=== PATIENT | female | born 1945 | race Asian ===

== ENCOUNTER → 2024-07-11 | Outpatient (CLI) | payer OTHER, SELFPAY ==
[2024-07-11 10:49] LABS: Albumin, Serum 4.4 gm/dL (3.4-4.8); Anion Gap 5 (7-16); BUN/Creatinine Ratio 16 Ratio (12-20); Blood Urea Nitrogen 14 mg/dL (9-23); Calcium 10.6 mg/dL (8.3-10.6); Calcium (Corrected) 10.6 mg/dL (8.5-10.1); Carbon Dioxide 28.9 mMol/L (20.0-31.0); Chloride 108 mMol/L (98-107); Creatinine (Component) 0.9 mg/dL (0.6-1.3); Glucose 96 mg/dL (74-106); Osmolality,Calculated 283 (275-295); Phosphorous 3.8 mg/dL (2.4-5.1); Potassium 4.5 mMol/L (3.4-5.1); Sodium 142 mMol/L (136-145); eGFR > 60 See Note
[2024-07-11 10:50] LABS: Parathyroid Hormone Intact 107.6 pg/ml (18.5-88.0)
== END | disposition home or self-care (01) ==
LOC: COPL 09:22
PROVIDERS: PCP Internal Medicine; Referring Provider Internal Medicine; Visit Provider Internal Medicine
DX: I10 Essential (primary) hypertension (principal); E21.0 Primary hyperparathyroidism
CPT/HCPCS: 36415; 80069; 83970

== ENCOUNTER 2024-10-23 22:31 | Emergency (ER) | payer OTHER, SELFPAY ==
[2024-10-23 22:33] VITALS: BMI 25.9
[2024-10-23 22:44] VITALS: BP 99/62; PULSE 75; RESP 20; TEMP 36.6
--- NOTE | 2024-10-23 23:04 | EKG_ITS ---
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
[2024-10-23 23:05] VITALS: BP 90/60; BP 92/56; BP 95/60; PULSE 66; PULSE 76; PULSE 77
--- NOTE | 2024-10-23 23:05 | PD.EDRME ---
Rapid Medical Screening Exam RME Arrival date/time: 10/23/24 22:31 79-year-old female past medical history of hypertension presents emergency department complaining of shakiness and low blood pressure after taking 50 mg of hydralazine when she normally just takes 25mg along with her atenolol. Chief Complaint: General Adult/Misc Complain Time Seen by Provider: 10/23/24 22:38 Vital signs: Vital Signs Temperature 97.9 F 10/23/24 22:44 Pulse Rate 75 10/23/24 22:44 Respiratory Rate 20 10/23/24 22:44 Blood Pressure 99/62 10/23/24 22:44 Oxygen Delivery Method Room Air 10/23/24 22:44 Vital signs reviewed by provider: Yes
[2024-10-23 23:35] LABS: Basophils # (Auto) 0.1 Thou/mm3 (0.0-0.2); Basophils % (Auto) 2 % (0-2.5); Eosinophils # (Auto) 0.2 Thou/mm3 (0.0-0.5); Eosinophils % (Auto) 3 % (0-10); Hematocrit 41.2 % (36.0-46.0); Hemoglobin 13.4 g/dL (12.0-16.0); Immature Granulocytes % (Auto) 0 % (0-0); Immature Granulocytes Auto 0.02 Thou/mm3 (0.00-0.00); Lymphocytes # (Auto) 2.8 Thou/mm3 (1.0-4.8); Lymphocytes % (Auto) 38 % (10-50); Mean Corpuscular HGB Conc 32.5 g/dl (31.0-37.0); Mean Corpuscular Hemoglobin 31.5 pg (25.0-35.0); Mean Corpuscular Volume 97 fL (80-100); Monocytes # (Auto) 0.6 Thou/mm3 (0.0-0.8); Monocytes % (Auto) 9 % (0-12); Neutrophils # (Auto) 3.6 Thou/mm3 (1.8-7.7); Neutrophils % (Auto) 49 % (37-80); Nucleated Red Blood Cell % 0 /100 WBC (0); Platelet Count 243 Thou/mm3 (140-440); RDW Standard Deviation 44.5 fL (36.4-46.3); Red Blood Count 4.26 Miln/mm3 (4.00-5.20); White Blood Count 7.3 Thou/mm3 (3.6-11.0)
[2024-10-23 23:45] VITALS: BP 108/61; PULSE 68; RESP 18; O2SAT 98
[2024-10-23 23:46] LABS: Collection Type, Urine Clean Catch
[2024-10-23 23:50] LABS: Partial Thromboplastin Time 29.1 Seconds (22.0-36.0); Prothrombin Time 10.9 Seconds (9.0-12.2)
[2024-10-23 23:52] LABS: Bacteria,Urine Rare; Bilirubin,Urine Negative (Negative); Blood,Urine Negative (Negative); Clarity,Urine Clear (Clear/Hazy); Color,Urine Lt-Yellow (Lt Yel-Yel); Glucose, Urine Negative (Negative); Ketones,Urine Negative (Negative); Leukocyte Esterase,Urine Positive (Negative); Nitrite,Urine Negative (Negative); Protein,Urine Negative (Neg - Trace); RBC,Urine 6 /hpf (0-3); Specific Gravity,Urine 1.009 (1.001-1.035); Squamous Epithelial Cell,Urine 3 /hpf (0-5); Urobilinogen,Urine Negative mg/dL (0.0-1.0); WBC,Urine 17 /hpf (0-5)
[2024-10-23 23:52] LABS: B-Type Natriuretic Peptide 106 pg/mL (0-100)
[2024-10-24] VITALS (8 sets, daily range): BP systolic 92–115; BP diastolic 58–86; PULSE 58–76; RESP 18; TEMP 36.5; O2SAT 96–99
[2024-10-24 00:01] LABS: Albumin, Serum 4.3 gm/dL (3.4-4.8); Albumin/Globulin Ratio 1.6 (1.2-2.2); Alkaline Phosphatase 53 U/L (46-116); Anion Gap 7 (7-16); Aspartate Amino Transferase 18 U/L (0-34); BUN/Creatinine Ratio 15 Ratio (12-20); Bilirubin,Total 0.6 mg/dL (0.3-1.2); Blood Urea Nitrogen 12 mg/dL (9-23); Calcium 10.1 mg/dL (8.3-10.6); Calcium (Corrected) 10.1 mg/dL (8.5-10.1); Carbon Dioxide 24.9 mMol/L (20.0-31.0); Chloride 109 mMol/L (98-107); Creatinine (Component) 0.8 mg/dL (0.6-1.3); Estimated Creatinine Clearance 47.4 mL/min (>60); Globulin 2.7 gm/dL (2.3-3.5); Glucose 97 mg/dL (74-106); Magnesium 2.1 mg/dL (1.6-2.6); Osmolality,Calculated 280 (275-295); Potassium 3.9 mMol/L (3.4-5.1); Sodium 141 mMol/L (136-145); Troponin I < 0.020 ng/mL (0.0-0.045); eGFR > 60 See Note
--- NOTE | 2024-10-24 00:01 | PC.NURSE ---
Pt ambulated to RM #1 with c/o high BP, and took her meds Procardia 60 mg and Hydralazine 50 mg. B/P 157/102 at home per pt.
[2024-10-24 00:05] LABS: Alanine Aminotransferase < 7 U/L (10-49)
--- NOTE | 2024-10-24 00:23 | PD.EDADULT ---
ED General RME/HPI General Chief complaint: General Adult/Misc Complain Stated complaint: LOW BP, FEELS SHAKY Time Seen by Provider: 10/23/24 22:38 Arrival date/time: 10/23/24 22:31 RME / HPI RME / HPI narrative: 10/23/24 22:31 79-year-old female past medical history of hypertension presents emergency department complaining of shakiness and low blood pressure after taking 50 mg of hydralazine when she normally just takes 25mg along with her atenolol. Dr. Alejandra?s Main ED Evaluation: 79yo female with a history of HTN, HLD presents to the ED for complaints of low blood pressure and shakiness. Patient states she was checking her blood pressure earlier tonight and it was noted to be high at 157/102. She states she took an additional dose of her regular hydralazine 25mg, along with a dose of her 's nifedipine in order to bring it down. When she rechecked her blood pressure, it was noted to be 107/102 and she was unsure if her blood pressure cuff was working properly, so she came in for evaluation. Patient reports associated shakiness. She denies any chest pain, shortness of breath, abdominal pain, N/V or any other associated symptoms. Electrician Ship is Dr. Frazier. Related Data Home Medications ?Medication ?Instructions ?Recorded ?Confirmed allopurinol 100 mg tablet 1 tab PO QDAY 04/25/22 04/29/22 atenolol 25 mg tablet 1 tab PO QDAY 04/25/22 04/29/22 hydralazine 25 mg tablet 1 tab PO QDAY 04/29/22 04/29/22 Previous Rx's ?Medication ?Instructions ?Recorded diazepam 2 mg tablet 2 mg PO QDAY PRN anxiety #10 tabs 05/26/24 cephalexin 500 mg capsule 500 mg PO BID Urinary tract 10/24/24 infection 7 days #14 caps diazepam 2 mg tablet 2 mg PO BID PRN anxiety #10 tabs 10/24/24 Allergies Allergy/AdvReac Type Severity Reaction Status Date / Time iron Allergy Severe Itching Verified 04/29/22 12:00 krill oil Allergy Rash Verified 04/29/22 12:00 Review of Systems Review of Systems Systems Reviewed: All systems reviewed, normal except as documented Past Medical History Past Medical History NEUROLOGIC: Negative Seizures CARDIAC: Positive Cardiac Disorders, Hypercholesterolemia and Hypertension; Negative Congestive Heart Failure RESPIRATORY: Negative Chronic Obstructive Pulmonary Disease (COPD) GASTROINTESTINAL: Positive Gastrointestinal Disorders and Gall Bladder Disease GENITOURINARY: Negative Renal Disease MUSCULOSKELETAL: Positive Musculoskeletal Disorders (Spinal Stenosis causing back pain) and Arthritis ENDOCRINE: Negative Diabetes Mellitus Type 1 or Diabetes Mellitus Type 2 HEMATOLOGIC: Negative Blood Disorders PSYCHO/SOCIAL: Positive Depression OTHER HISTORY: Negative Blood Transfusions, Anesthesia Reactions or Cancer Surgical History SURGICAL: Positive Joint Replacement (Back pain due to spinal stenosis), Hysterectomy and Section Social History SMOKING STATUS: Never smoker SUBSTANCE USE: does not use ED Exam Narrative Physical exam: GENERAL APPEARANCE: alert and oriented x 4, well-developed, well-nourished, no acute distress VITALS: All vitals were reviewed and the pulse ox is 99% on room air, which is normal according to my interpretation. HEENT: Normocephalic, atraumatic; pupils equal, round, reactive to light; EOMI; mucous membranes pink, moist; oropharynx clear NECK: Supple LUNGS: CTABL; no wheezes, no rales, no rhonchi HEART: Regular rate, regular rhythm; normal S1, S2; no murmurs ABDOMEN: non distended; normal BS; soft, no tenderness, no guarding, no rebound; no masses, no organomegaly, no hernia BACK: no CVA tenderness EXTREMITIES: atraumatic; no edema NEUROLOGIC: awake; alert and oriented x4; cranial nerves II-XII grossly intact; no focal sensory or motor deficits PSYCHIATRIC: appropriate mood and affect SKIN: warm, dry, normal color; no rashes Course Course Course Narrative: The patient was placed in ED observation care at 10/24/24 at 0023 hours. The patient was placed in ED observation care because of pending monitoring of any side effects due to her blood pressure being low. The patients past medical history, social history, and family history were reviewed. Quality Measures none Orders Category Date Time Status Removable Prosthodontist Q4H START 00 Care 10/23/24 23:20 Active EKG (ED ONLY) *Do not use* NOW Care 10/23/24 23:04 Completed Insert IV NOW Care 10/23/24 23:20 Active Orthostatic Vitals X1 Care 10/23/24 23:06 Active EKG (ED Only) Stat Exams 10/23/24 23:04 Draft B-Type Natriuretic Peptide Stat Lab 10/23/24 23:27 Completed CBC Stat Lab 10/23/24 23:27 Completed Comprehensive Metabolic Panel Stat Lab 10/23/24 23:27 Completed Magnesium Stat Lab 10/23/24 23:27 Completed Partial Thromboplastin Time Stat Lab 10/23/24 23:27 Completed Prothrombin Time with INR Stat Lab 10/23/24 23:27 Completed Troponin I Stat Lab 10/23/24 23:27 Completed Urinalysis Stat Lab 10/23/24 23:42 Completed Sodium Chloride 0.9% 1000 ml [Ns] 1,000 ml Med 10/23/24 23:21 Active IV 125 mls/hr Vital Signs Vital signs: Vital Signs Temperature 97.9 F 10/23/24 22:44 Pulse Rate 75 10/23/24 22:44 Respiratory Rate 20 10/23/24 22:44 Blood Pressure 99/62 10/23/24 22:44 Oxygen Delivery Method Room Air 10/23/24 22:44 [facility] Patient data External records reviewed:: [facility] previous records (Per chart review, patient was seen here on 05/26/24 for anxiety reaction.) Clinical information provided by:: patient Social determinants that could affect healthcare access:: none Patient has the following chronic illnesses:: HTN, HLD How is presenting disease/condition affected by chronic disease/condition?: uneffected by Evaluation data The following diagnostics were reviewed and interpreted by me:: lab results and EKG tracing(s) Lab and/or radiology exams considered but not ordered:: none Interpretation Summary: CBC is normal, PT and INR are normal, PTT is normal, CMP is normal, Troponin is normal, BNP is 106, according to my interpretation. EKG done at 2311, aFib, rate of 70, normal axis, no acute ischemia, according to my interpretation. Medications Medications considered but not ordered:: none Medication administrations:: Medication Administration History Sodium Chloride (Ns) 1,000 mls @ 125 mls/hr IV .Q8H ONE Stop: 10/24/24 07:20 Last Admin: 10/24/24 00:45 Dose: 125 mls/hr Documented By: LB see above Consultations Consultation(s) initiated? (list below): No Diagnosis Differential Diagnosis ED Complaint MDM: medication misadventure, intentional overdose, unintentional overdose Most likely diagnosis given after review of the tests above:: see below Admission Indicated Admission indicated?: not indicated Explain why admission is indicated or not indicated:: Admission criteria not met. Patient is stable to be discharged home. Admission Request Was there a request for admission?: No Disposition Plan Disposition Plan: Discharge Discharge Attestation Discharge Attestation: The patient and all family members were given an opportunity to ask questions and understood the discharge instructions. Discharge instructions specifically effects, indications for sooner follow up or return to the emergency department, and the expected course of current diagnosis. Patient condition: Stable Medical Decision Making MDM Narrative MDM Narrative: Scribe Attestation: 10/24/24 - Nelida Duncan am scribing for and in the presence of Dr. Alejandra. 0130: Patient's blood pressure is 92/60 with a heart rate of 68. Patient to continued being monitored. 0213: Patient's blood pressure is 115/56. Patient states she is asymptomatic and feels better. At this time, observation has ended. Differential Diagnosis Differential Diagnosis: medication misadventure, intentional overdose, unintentional overdose Lab Data 10/23/24 23:27 10/23/24 23:27 Labs: Lab Results 10/23/24 10/23/24 Range/Units 23:27 23:42 WBC 7.3 (3.6-11.0) Thou/mm3 RBC 4.26 (4.00-5.20) Miln/mm3 Hgb 13.4 (12.0-16.0) g/dL Hct 41.2 (36.0-46.0) % MCV 97 (80-100) fL MCH 31.5 (25.0-35.0) pg MCHC 32.5 (31.0-37.0) g/dl RDW Std Deviation 44.5 (36.4-46.3) fL Plt Count 243 (140-440) Thou/mm3 Neut % (Auto) 49 (37-80) % Lymph % (Auto) 38 (10-50) % [place] % (Auto) 9 (0-12) % Eos % (Auto) 3 (0-10) % Baso % (Auto) 2 (0-2.5) % Neut # (Auto) 3.6 (1.8-7.7) Thou/mm3 Lymph # (Auto) 2.8 (1.0-4.8) Thou/mm3 [place] # (Auto) 0.6 (0.0-0.8) Thou/mm3 Eos # (Auto) 0.2 (0.0-0.5) Thou/mm3 Baso # (Auto) 0.1 (0.0-0.2) Thou/mm3 Immature Gran # (Auto) 0.02 H (0.00-0.00) Thou/mm3 Absolute Nucleated RBC 0.00 (0.00-0.00) Thou/mm3 Immature Gran % 0 (0-0) % Nucleated RBC % 0 (0) /100 WBC PT 10.9 (9.0-12.2) Seconds INR 1.0 (0.9-1.3) APTT 29.1 (22.0-36.0) Seconds Sodium 141 (136-145) mMol/L Potassium 3.9 (3.4-5.1) mMol/L Chloride 109 H (98-107) mMol/L Carbon Dioxide 24.9 (20.0-31.0) mMol/L Anion Gap 7 (7-16) BUN 12 (9-23) mg/dL Creatinine 0.8 (0.6-1.3) mg/dL Estim Creat Clear Calc 47.4 L (>60) mL/min eGFR > 60 (60 - ) See Note BUN/Creatinine Ratio 15 (12-20) Ratio Glucose 97 (74-106) mg/dL Calculated Osmolality 280 (275-295) Calcium 10.1 (8.3-10.6) mg/dL Corrected Calcium 10.1 (8.5-10.1) mg/dL Magnesium 2.1 (1.6-2.6) mg/dL Total Bilirubin 0.6 (0.3-1.2) mg/dL AST 18 (0-34) U/L ALT < 7 L (10-49) U/L Alkaline Phosphatase 53 (46-116) U/L Troponin I < 0.020 (0.0-0.045) ng/mL B-Natriuretic Peptide 106 H (0-100) pg/mL Total Protein 7.0 (5.7-8.2) gm/dL Albumin 4.3 (3.4-4.8) gm/dL Globulin 2.7 (2.3-3.5) gm/dL Albumin/Globulin Ratio 1.6 (1.2-2.2) Ur Collection Type Clean Catch Urine Color Lt-Yellow (Lt Yel-Yel) Urine Clarity Clear (Clear/Hazy) Urine pH 6.0 (5.0-7.0) Ur Specific [place] 1.009 (1.001-1.035) Urine Protein Negative (Neg - Trace) Urine Glucose (UA) Negative (Negative) Urine Ketones Negative (Negative) Urine Blood Negative (Negative) Urine Nitrite Negative (Negative) Urine Bilirubin Negative (Negative) Urine Urobilinogen (Auto) Negative (0.0-1.0) mg/dL Ur Leukocyte Esterase Positive (Negative) Urine RBC 6 H (0-3) /hpf Urine WBC 17 H (0-5) /hpf Ur Squamous Epith Cells 3 (0-5) /hpf Urine Bacteria Rare (None) Discharge Plan Plan Patient Disposition: HOME (Self Care) Disposition Comment: Stable for discharge home Patient condition on transfer: Stable Prescriptions/Referrals Prescriptions/Med Rec: New diazepam 2 mg tablet 2 mg PO BID MDD 2 tabs PRN (Reason: anxiety) Qty: 10 0RF No Action atenolol 25 mg tablet 1 tab PO QDAY allopurinol 100 mg tablet 1 tab PO QDAY hydralazine 25 mg tablet 1 tab PO QDAY diazepam 2 mg tablet 2 mg PO QDAY PRN (Reason: anxiety) Qty: 10 0RF Referrals: Lashawn Christopher MD [Primary Care Provider] - In 1 week Problem List Clinical Impression: Medication error, Hypotensive episode, Anxiety Patient/Caregiver Discharge Instructions Discharge Activity: activity as tolerated Education Materials: Taking Your Blood Pressure, Anxiety Disorders Tx Therapy, ED Low Blood Pressure, All Causes Additional Instructions: Please return to the emergency department if you have any worsening or any further medical problems. Otherwise you should follow-up with your primary care doctor within the next several days. Print Language: Kenyan Stand Alone Forms: Dominique Award Info., Patient Portal Info Letter
[2024-10-24] MEDS: SODIUM CHLORIDE 0.9% 1000 ML 1,000 ML 125 ML IV (00:45)
== END 2024-10-24 03:15 | disposition home or self-care (01) ==
PROVIDERS: Emergency Provider Emergency Medicine; PCP Internal Medicine
DX: I95.9 Hypotension, unspecified (principal); F41.9 Anxiety disorder, unspecified; T46.5X5A Adverse effect of other antihypertensive drugs, initial encounter; E78.5 Hyperlipidemia, unspecified; I10 Essential (primary) hypertension
CPT/HCPCS: 36415; 80053; 81001; 83735; 83880; 84484; 85025; 85610; 85730; 93005; 96360; 96361; 99284; J7030

== ENCOUNTER → 2024-10-26 | Outpatient (CLI) | payer OTHER, SELFPAY ==
--- NOTE | 2024-10-26 08:45 | XR_ITS ---
Examination: Screening digital mammography, bilateral Computer aided detection 3-D breast Tomosynthesis, bilateral Date and time of exam: October 26, 2024 0851 hours Compared to mammograms dating to August 27, 2020 Indication: Screening Technique: Nonmagnified MLO, CC views of the breasts to been obtained, reconstructed from 3-D Tomosynthesis images. R2 computer aided detection program utilized for evaluation of suspicious masses and/or abnormal calcifications. 3-D Tomosynthesis images obtained. Findings: Scattered areas of fibroglandular density. 8 mm focal asymmetry upper outer left breast mid depth Benign calcifications Impression: BI-RADS Category 0: Incomplete: Need additional imaging evaluation 8 mm focal asymmetry upper outer left breast mid depth, recommend follow-up spot tomographic views of this asymmetry as well as bilateral breast sonography to complete the workup.
== END | disposition home or self-care (01) ==
PROVIDERS: Referring Provider Internal Medicine; Visit Provider Internal Medicine
DX: Z12.31 Encounter for screening mammogram for malignant neoplasm of breast (principal); N64.89 Other specified disorders of breast; R92.8 Other abnormal and inconclusive findings on diagnostic imaging of breast
CPT/HCPCS: 77063; 77067

== ENCOUNTER → 2024-12-01 | Outpatient (CLI) | payer OTHER, SELFPAY ==
--- NOTE | 2024-12-01 08:45 | XR_ITS ---
Examination: Breast ultrasound complete, bilateral Date and time of exam: December 01, 2024 0829 hrs. Indications: Mammogram October 26, 2024 8mm focal asymmetry upper outer left breast posterior depth Technique: Real-time grayscale ultrasonographic imaging bilateral breasts, including all 4 quadrants as well as nipple retroareolar and axillary regions. Findings: Sonographic images right breast No cystic or solid mass Sonographic images left breast 2:00 cyst 3 x 5 mm 3:00 circumscribed nodule 4 x 4 millimeter 4:00 cyst 2 x 3 mm 4:00 intramammary lymph node 6 x 5 mm Impression: BI-RADS Category 2: Benign findings
--- NOTE | 2024-12-01 09:45 | XR_ITS ---
Examination: Diagnostic digital mammography, unilateral, left Computer aided detection 3-D breast Tomosynthesis, unilateral Date and time of exam: 12/01/2024, 8:57 AM Comparisons: August 2021 through October 2024 Indications: Further evaluation of abnormality outer breast seen on recent screening exam. Technique: Nonmagnified MLO, CC views of the left breast have been obtained, reconstructed from 3-D Tomosynthesis images. R2 computer aided detection program utilized for evaluation of suspicious masses and/or abnormal calcifications. 3-D Tomosynthesis images obtained. Technologist: Findings: There are scattered areas of fibroglandular density. Multiple benign-appearing oval circumscribed masses persist corresponds to a benign simple cysts seen on mammography. No suspicious abnormalities. Impression: BI-RADS category 2: Benign findings Recommend 1 year follow-up mammogram
== END | disposition home or self-care (01) ==
PROVIDERS: PCP Internal Medicine; Referring Provider Internal Medicine; Visit Provider Internal Medicine
DX: R92.322 Mammographic fibroglandular density, left breast (principal)
CPT/HCPCS: 76641; 77061; 77065; G0279

== ENCOUNTER → 2025-01-27 | Outpatient (CLI) | payer OTHER, SELFPAY ==
[2025-01-27 13:43] LABS: C-Reactive Protein < 0.5 mg/dL (0.0-0.9); Creatine Kinase 44 U/L (34-171)
[2025-01-27 13:46] LABS: Sed Rate (ESR) 16 mm/hr (0-30)
== END | disposition home or self-care (01) ==
LOC: COPL 12:48
PROVIDERS: PCP Internal Medicine; Referring Provider Psychiatry & Neurology Neurology; Visit Provider Psychiatry & Neurology Neurology
DX: M31.5 Giant cell arteritis with polymyalgia rheumatica (principal)
CPT/HCPCS: 36415; 82550; 85652; 86140

== ENCOUNTER 2025-05-01 14:52 | Observation (INO) | payer OTHER, SELFPAY ==
[2025-05-01 14:58] VITALS: BP 125/78; PULSE 61; RESP 18; TEMP 37.1; O2SAT 96
--- NOTE | 2025-05-01 15:03 | XR_ITS ---
Examination: CT brain head without contrast. 2-D sagittal coronal reconstructions Date and time of exam:May 01, 2025 1524 hours INDICATIONS: Patient fell today with injury to the head, head pain CTDI: vol (mGy):50.1 DLP: (mGycm):1043 Technique: Multiple CT axial sections of the brain have been obtained, 5 mm slice thickness. Contrast has not been administered. 2-D sagittal, coronal reconstructions have been obtained Low dose protocols were performed. One or more of the following dose reduction techniques were used; automated exposure control, adjustment of the mA and/or KV according to patient size, use of iterative reconstruction technique. Findings: No significant ventricular enlargement. Intra-axial or extra-axial hemorrhage density is not seen. No mass effect or midline shift Basal cisterns are not remarkable. Fourth ventricle is midline. Cranial vault intact. Posterior left parietal scalp hematoma Impression: Negative for acute hemorrhage, mass effect or midline shift
--- NOTE | 2025-05-01 15:03 | XR_ITS ---
Examination: CT cervical spine without contrast 2-D sagittal reconstructions 2-D coronal reconstructions 3-D reconstructions. Exam date and time:May 01, 2025, 1524 hours Ground-level fall today with into the neck, neck pain CTDI:vol (mGy) 13.6 DLP: (mGycm) 292 Technique: Multiple 2 mm axial sections of the cervical spine have been obtained. The coronal and sagittal reconstructions have been obtained. 3-D reconstructions have been obtained. Low dose protocols were performed. One or more of the following dose reduction techniques were used; automated exposure control, adjustment of the mA and/or KV according to patient size, use of iterative reconstruction technique. Findings: Axial sections demonstrate intact base of the skull. C1 exhibit satisfactory relationship to the odontoid. No acute cervical vertebral body fracture seen. Alignment posterior spinous processes satisfactory. There are tiny osteolytic areas throughout all of the cervical vertebral bodies especially C4 on C5 Impression: No acute cervical fracture. There are tiny osteolytic areas throughout all the vertebral bodies as above, this may represent severe osteopenia If neck pain persists, consider MRI cervical spine follow-up pre and postcontrast
--- NOTE | 2025-05-01 15:03 | EKG_ITS ---
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
--- NOTE | 2025-05-01 15:03 | PD.EDRME ---
Rapid Medical Screening Exam E Arrival date/time: 05/01/25 14:52 79-year-old female with a history of hypertension, A-fib, presents to the emergency room with a chief complaint of a syncopal episode that occurred today at 11 AM. Patient states she was very lightheaded weak and collapsed to the floor. Patient was then seen by her primary care provider who sent her to the emergency room I have greeted and performed a focused initial assessment of this patient. A comprehensive ED assessment and evaluation of the patient, analysis of all test results, and completion of the medical decision making process will be conducted by additional ED providers. Chief Complaint: Altered Mental Status Time Seen by Provider: 05/01/25 15:00 Vital signs: Vital Signs Temperature 98.8 F 05/01/25 14:58 Pulse Rate 61 05/01/25 14:58 Respiratory Rate 18 05/01/25 14:58 Blood Pressure 125/78 05/01/25 14:58 Pulse Oximetry (%) 96 05/01/25 14:58 Oxygen Delivery Method Room Air 05/01/25 14:58 Vital signs reviewed by provider: Yes
[2025-05-01 15:21] LABS: Basophils # (Auto) 0.1 Thou/mm3 (0.0-0.2); Basophils % (Auto) 1 % (0-2.5); Eosinophils # (Auto) 0.1 Thou/mm3 (0.0-0.5); Eosinophils % (Auto) 1 % (0-10); Hematocrit 45.2 % (36.0-46.0); Hemoglobin 14.3 g/dL (12.0-16.0); Immature Granulocytes Auto 0.03 Thou/mm3 (0.00-0.00); Lymphocytes # (Auto) 0.9 Thou/mm3 (1.0-4.8); Lymphocytes % (Auto) 11 % (10-50); Mean Corpuscular HGB Conc 31.6 g/dl (31.0-37.0); Mean Corpuscular Hemoglobin 31.5 pg (25.0-35.0); Mean Corpuscular Volume 100 fL (80-100); Monocytes # (Auto) 0.5 Thou/mm3 (0.0-0.8); Monocytes % (Auto) 6 % (0-12); Neutrophils # (Auto) 6.8 Thou/mm3 (1.8-7.7); Neutrophils % (Auto) 80 % (37-80); Nucleated Red Blood Cell # 0.00 Thou/mm3 (0.00-0.00); Nucleated Red Blood Cell % 0 /100 WBC (0); Platelet Count 230 Thou/mm3 (140-440); RDW Standard Deviation 46.7 fL (36.4-46.3); Red Blood Count 4.54 Miln/mm3 (4.00-5.20); White Blood Count 8.5 Thou/mm3 (3.6-11.0)
[2025-05-01 15:35] LABS: INR 1.1 (0.9-1.3); Partial Thromboplastin Time 28.3 Seconds (22.0-36.0); Prothrombin Time 11.5 Seconds (9.0-12.2)
[2025-05-01 15:37] LABS: B-Type Natriuretic Peptide 214 pg/mL (0-100)
[2025-05-01 15:40] LABS: Alanine Aminotransferase < 7 U/L (10-49); Albumin, Serum 4.5 gm/dL (3.4-4.8); Albumin/Globulin Ratio 1.5 (1.2-2.2); Alkaline Phosphatase 67 U/L (46-116); Anion Gap 11 (7-16); Aspartate Amino Transferase 20 U/L (0-34); BUN/Creatinine Ratio 7 Ratio (12-20); Bilirubin,Total 0.7 mg/dL (0.3-1.2); Blood Urea Nitrogen 8 mg/dL (9-23); Calcium 10.4 mg/dL (8.3-10.6); Calcium (Corrected) 10.4 mg/dL (8.5-10.1); Carbon Dioxide 27.0 mMol/L (20.0-31.0); Chloride 104 mMol/L (98-107); Creatinine (Component) 1.1 mg/dL (0.6-1.3); Estimated Creatinine Clearance 34.6 mL/min (>60); Free T4 (Free Thyroxine) 1.18 ng/dL (0.89-1.76); Globulin 3.0 gm/dL (2.3-3.5); Glucose 92 mg/dL (74-106); Magnesium 2.3 mg/dL (1.6-2.6); Osmolality,Calculated 281 (275-295); Potassium 4.1 mMol/L (3.4-5.1); Sodium 142 mMol/L (136-145); Thyroid Stimulating Hormone 0.67 uIU/mL (0.55-4.78); Total Protein 7.5 gm/dL (5.7-8.2); Troponin I < 0.020 ng/mL (0.0-0.045); eGFR 51 See Note
[2025-05-01 16:04] VITALS: BP 134/76; PULSE 65; RESP 14; TEMP 37.2; O2SAT 99
[2025-05-01 16:12] VITALS: BP 132/80; BP 139/88; BP 142/88; PULSE 58; PULSE 64; PULSE 70
--- NOTE | 2025-05-01 16:13 | PD.EDSYNC ---
ED Syncope RME/HPI General Chief Complaint: Altered Mental Status Stated Complaint: LOST CONSCIOUSNESS, FELL & HIT HEAD Time Seen by Provider: 05/01/25 15:00 Arrival date/time: 05/01/25 14:52 RME / HPI RME / HPI narrative: 05/01/25 14:52 79-year-old female with a history of hypertension, A-fib, presents to the emergency room with a chief complaint of a syncopal episode that occurred today at 11 AM. Patient states she was very lightheaded weak and collapsed to the floor. Patient was then seen by her primary care provider who sent her to the emergency room I have greeted and performed a focused initial assessment of this patient. A comprehensive ED assessment and evaluation of the patient, analysis of all test results, and completion of the medical decision making process will be conducted by additional ED providers. DR. LAKIA BARRETO ED EVALUATION 79 year old female with history of hypertension, hyperlipidemia presents to the ED [facility] from [employer] for evaluation after syncopal episode today. Patient states she was [place] the [place] when she suddenly felt faint. Next thing she recalls is waking on the floor and doesn't know how or why she had fallen. In the ED, she complains of pain to the left parietal occipital scalp area which she believes she struck on the floor during the fall. Denies any neck pain. No other associated symptoms reported. Related Data Home Medications ?Medication ?Instructions ?Recorded ?Confirmed allopurinol 100 mg tablet 1 tab PO QDAY 04/25/22 04/29/22 atenolol 25 mg tablet 1 tab PO QDAY 04/25/22 04/29/22 hydralazine 25 mg tablet 1 tab PO QDAY 04/29/22 04/29/22 Previous Rx's ?Medication ?Instructions ?Recorded diazepam 2 mg tablet 2 mg PO QDAY PRN anxiety #10 tabs 05/26/24 diazepam 2 mg tablet 2 mg PO BID PRN anxiety #10 tabs 10/24/24 Allergies Allergy/AdvReac Type Severity Reaction Status Date / Time iron Allergy Severe Itching Verified 05/01/25 14:56 krill oil Allergy Rash Verified 05/01/25 14:56 Review of Systems Review of Systems Systems Reviewed: All systems reviewed, normal except as documented Past Medical History Past Medical History CARDIAC: Positive Cardiac Disorders, Hypercholesterolemia and Hypertension GASTROINTESTINAL: Positive Gastrointestinal Disorders and Gall Bladder Disease MUSCULOSKELETAL: Positive Musculoskeletal Disorders and Arthritis PSYCHO/SOCIAL: Positive Depression Surgical History SURGICAL: Positive Joint Replacement, Hysterectomy and Section Social History SMOKING STATUS: Never smoker SUBSTANCE USE: does not use ED Exam Narrative Physical exam: See MDM Course Quality Measures none Orders Category Date Time Status Electric Frying Pan Repairer STAT Care 05/01/25 15:11 Active Continuous Pulse Oximetry NOW Care 05/01/25 15:12 Completed EKG (ED ONLY) *Do not use* NOW Care 05/01/25 15:03 Completed Insert IV STAT Care 05/01/25 15:12 Active Orthostatic Vitals NOW Care 05/01/25 15:[address] cervical spine wo con Stat Exams 05/01/25 15:[address] head/brain wo con Stat Exams 05/01/25 15:03 Completed EKG (ED Only) Stat Exams 05/01/25 15:03 Draft B-Type Natriuretic Peptide Stat Lab 05/01/25 15:12 Completed CBC Stat Lab 05/01/25 15:12 Completed Comprehensive Metabolic Panel Stat Lab 05/01/25 15:12 Completed Free T4 (Free Thyroxine) Stat Lab 05/01/25 15:12 Completed Magnesium Stat Lab 05/01/25 15:12 Completed Partial Thromboplastin Time Stat Lab 05/01/25 15:12 Completed Prothrombin Time with INR Stat Lab 05/01/25 15:12 Completed TSH [Thyroid Stimulating Hormone] Stat Lab 05/01/25 15:12 Completed Troponin I Stat Lab 05/01/25 15:12 Completed Urinalysis, C/S if Indicated Stat Lab 05/01/25 16:28 Completed Urine Culture Stat Lab 05/01/25 16:28 Received Vital Signs Vital signs: Vital Signs Temperature 98.8 F 05/01/25 14:58 Pulse Rate 61 05/01/25 14:58 Respiratory Rate 18 05/01/25 14:58 Blood Pressure 125/78 05/01/25 14:58 Pulse Oximetry (%) 96 05/01/25 14:58 Oxygen Delivery Method Room Air 05/01/25 14:58 Pulse ox is 96% on room air which is adequate. Syncope MDM Narrative MDM Narrative:: This section includes all my notes and documentations, including HPI, PE, and ED course. Yasmany Alejandra MD ? HPI: 79 year old female with history of hypertension, hyperlipidemia presents to the ED [facility] from [employer] for evaluation after syncopal episode today. Patient [place] she [place] felt [place]. Next thing she recalls is waking on the floor and doesn't know how or why she had fallen. In the ED, she complains of pain to the left parietal occipital scalp area which she believes she struck on the floor during the fall. Denies any neck pain. No other associated symptoms reported. ? ROS: All negative except as documented in HPI. ? PE: GENERAL APPEARANCE:? alert and oriented x 4, well-developed, well-nourished, no acute distress VITALS: All vitals were reviewed and the pulse ox is % on room air, which is normal according to my interpretation. HEENT: Normocephalic, there is a 5cm contusion to the left parietal occipital scalp; pupils equal, round, reactive to light; EOMI; mucous membranes pink, moist; oropharynx clear NECK: Supple LUNGS: CTABL; no wheezes, no rales, no rhonchi HEART: Regular rate, regular rhythm; normal S1, S2; no murmurs ABDOMEN: non distended; normal BS;? soft, no tenderness, no guarding, no rebound; no masses, no organomegaly, no hernia?? BACK:? no CVA tenderness EXTREMITIES:? atraumatic; no edema NEUROLOGIC: awake; alert and oriented x4; cranial nerves II-XII grossly intact; no focal sensory or motor deficits PSYCHIATRIC:? appropriate mood and affect SKIN: warm, dry, normal color; no rashes ? I reviewed EMS notes. ? I reviewed all diagnostic test results: My review of the cervical spine CT report is: No acute cervical fracture My review of the head CT report is: Negative for acute hemorrhage My interpretation of the EKG @ 1504h: NSR, rate 60, normal axis, no ectopy, no acute ischemia. Blood tests and urine test: CBC unremarkable, PT/PTT within normal limits ? At this point, diagnoses include: syncope, scalp contusion ? Treatment here included: No medications given in the ED. 16:08h I spoke with patients PCP Dr. Christopher. Discussed patients PMHx, HPI, ED course, exam findings, labs, and radiology results. She agrees to accept the patient for admission. Patient data External records reviewed:: [facility] previous records and EMS form Clinical information provided by:: patient and EMS Social determinants that could affect healthcare access:: none Patient has the following chronic illnesses:: HTN, HLD How is presenting disease/condition affected by chronic disease/condition?: exacerbated by Evaluation data The following diagnostics were reviewed and interpreted by me:: lab results, radiology exam(s) and EKG tracing(s) Lab and/or radiology exams considered but not ordered:: None Interpretation Summary: See MDM Medications / Prescriptions Medications or Prescriptions considered but not ordered:: None Medication administrations:: None Consultations Consultation(s) initiated? (list below): Yes Consultation #1 (Physician, Specialty, Details): See MDM Diagnosis Syncope Differential Diagnosis: syncope due to orthostatic hypotension, vasovagal syncope, subarachnoid hemorrhage and dehydration Most likely diagnosis given after review of the tests above:: Syncope scalp contusion Admission Indicated Admission indicated?: indicated Admission Request Was there a request for admission?: Yes Admission Attestation Admission request attestation: Discussed case with [] from Hospitalist service regarding admission. Discussed patients ED course, exam findings, labs, and radiology results. The Hospitalist [agrees,declines] to accept the patient for admission. Disposition Plan Disposition Plan: Admit Discharge Plan Plan Patient Disposition: Admit Acute Care w/in Hospital Discharge Disposition comment: Dr. Christopher to admit Prescriptions/Referrals Prescriptions/Med Rec: No Action atenolol 25 mg tablet 1 tab PO QDAY allopurinol 100 mg tablet 1 tab PO QDAY hydralazine 25 mg tablet 1 tab PO QDAY diazepam 2 mg tablet 2 mg PO BID MDD 2 tabs PRN (Reason: anxiety) Qty: 10 0RF diazepam 2 mg tablet 2 mg PO QDAY PRN (Reason: anxiety) Qty: 10 0RF Referrals: Lashawn Christopher MD [Primary Care Provider, Nephrology] - In 1 week Problem List Clinical Impression: Syncope, Scalp contusion Patient/Caregiver Discharge Instructions Print Language: Irish Stand Alone Forms: Dominique Award Info., Patient Portal Info Letter
[2025-05-01 16:45] LABS: Collection Type, Urine Clean Catch
[2025-05-01 17:29] LABS: Bilirubin,Urine Negative (Negative); Blood,Urine 2+ (Negative); Clarity,Urine Turbid (Clear/Hazy); Color,Urine Yellow (Lt Yel-Yel); Glucose, Urine Negative (Negative); Hyaline Casts,Urine 2 /hpf (0-1); Ketones,Urine Trace (Negative); Leukocyte Esterase,Urine Positive (Negative); Nitrite,Urine Negative (Negative); PH,Urine 6.0 (5.0-7.0); Protein,Urine 1+ (Neg - Trace); RBC,Urine 25 /hpf (0-3); Specific Gravity,Urine 1.024 (1.001-1.035); Squamous Epithelial Cell,Urine 10 /hpf (0-5); Transitional Epi Cells,Urine 3 /hpf (0-5); Urobilinogen,Urine Negative mg/dL (0.0-1.0); WBC,Urine 46 /hpf (0-5)
[2025-05-01 17:32] LABS: Culture Indicated,Urine Yes
[2025-05-01 18:01] VITALS: BP 151/82; PULSE 62; RESP 16; TEMP 37.2; O2SAT 95
[2025-05-01] MEDS: ACETAMINOPHEN 325 MG TABLET 650 MG PO (18:30)
--- NOTE | 2025-05-01 19:51 | PD.NEPHHP ---
Documented by User: Lashawn Christopher MD 05/02/25 12:45 Documentation for date of: 05/01/25 History of Present Illness History of Present Illness Chief complaint: Syncope Review of Systems Review of Systems Narrative Review of Systems: CONSTITUTIONAL: Patient denies any fever, chills. HEENT: Denies any visual disturbances or hearing problems. CARDIOVASCULAR: Patient denies any chest pain, shortness of breath, swelling in the lower extremities. PULMONARY: Patient denies any shortness of breath, cough. GASTROINTESTINAL: Patient denies any abdominal pain, constipation, nausea, vomiting, diarrhea. GENITOURINARY: Patient denies any urinary symptoms of burning or frequency or hematuria, denies any form in the urine. SKIN: Denies any rash. MUSCULOSKELETAL: Denies any muscular skeletal problems of joint pains. NEUROLOGICAL: Denies any neurological problems of strokes, seizures or confusion. Denies any memory problems. PSYCHIATRIC: Denies any depression or anxiety. LYMPHATICS : No lymphadenopathy Past Medical History Past Medical History NEUROLOGIC: Negative Seizures CARDIAC: Positive Cardiac Disorders, Hypercholesterolemia and Hypertension; Negative Congestive Heart Failure RESPIRATORY: Negative Chronic Obstructive Pulmonary Disease (COPD) GASTROINTESTINAL: Positive Gastrointestinal Disorders and Gall Bladder Disease GENITOURINARY: Negative Renal Disease MUSCULOSKELETAL: Positive Musculoskeletal Disorders and Arthritis ENDOCRINE: Negative Diabetes Mellitus Type 1 or Diabetes Mellitus Type 2 HEMATOLOGIC: Negative Blood Disorders PSYCHO/SOCIAL: Positive Depression OTHER HISTORY: Negative Blood Transfusions, Anesthesia Reactions or Cancer Surgical History SURGICAL: Positive Joint Replacement, Hysterectomy and Section Social History SMOKING STATUS: Never smoker SUBSTANCE USE: does not use Meds Home Medications and Allergies Home Medications ?Medication ?Instructions ?Recorded ?Confirmed ?Type allopurinol 100 mg tablet 1 tab PO QDAY 04/25/22 05/01/25 History atenolol 25 mg tablet 1 tab PO QDAY 04/25/22 05/01/25 History Held on 05/02/25. Instructions: Resume on 05/09/25. Allergies Allergy/AdvReac Type Severity Reaction Status Date / Time iron Allergy Severe Itching Verified 05/01/25 14:56 krill oil Allergy Rash Verified 05/01/25 14:56 Exam Vital Signs Temp Pulse Resp BP Pulse Ox O2 Del Method 37.2 C 62 16 151/82 H 95 Room Air 05/01/25 18:01 05/01/25 18:01 05/01/25 18:01 05/01/25 18:01 05/01/25 18:01 05/01/25 18:01 Results: Labs 05/02/25 05:09 05/02/25 05:09 Labs: Short CBC 05/01/25 Range/Units 15:12 WBC 8.5 (3.6-11.0) Thou/mm3 Hgb 14.3 (12.0-16.0) g/dL Hct 45.2 (36.0-46.0) % Plt Count 230 (140-440) Thou/mm3 BMP 05/01/25 15:12 Sodium 142 Potassium 4.1 Chloride 104 Carbon Dioxide 27.0 BUN 8 L Creatinine 1.1 Glucose 92 Calcium 10.4 Cardiac Enzymes 05/01/25 Range/Units 15:12 Troponin I < 0.020 (0.0-0.045) ng/mL Liver Function 05/01/25 Range/Units 15:12 Total Bilirubin 0.7 (0.3-1.2) mg/dL AST 20 (0-34) U/L ALT < 7 L (10-49) U/L Alkaline Phosphatase 67 (46-116) U/L Albumin 4.5 (3.4-4.8) gm/dL Urine 05/01/25 Range/Units 16:28 Urine Color Yellow (Lt Yel-Yel) Urine Clarity Turbid A (Clear/Hazy) Urine pH 6.0 (5.0-7.0) Ur Specific [place] 1.024 (1.001-1.035) Urine Protein 1+ A (Neg - Trace) Urine Glucose (UA) Negative (Negative) Assessment & Plan Assessment and plan (1) Syncope: Status: Acute (2) Scalp contusion: Status: Acute Additional Assessment & Plan Additional Plan: 79y/o F with PMH of A.fib, HTN, hypercholesterolemia, choliathiasis, presents to the hospital due to an episode of syncope. The patient will be admitted for observation and monitoring of symptoms following a syncopal episode with a subsequent fall. #Syncope - Patient stated that she felt lightheadedness and fell to the ground unconscious for short period. - Cervical Spine CT (05/01/2025): No acute cervical fracture, There are tiny osteolytic areas throughout all the vertebral bodies as above, this may represent severe osteopenia - Head CT (05/01/2025): Negative for acute hemorrhage, mass effect or midline shift - Possible differentials: Cardiac syncope, given this patient's A.fib history VS ?Vasovagal syncope, given this patient's bradycardia and history of low bloodpressure, this is a potential diagnosis Plan: Hold off on blood pressure medications for now She is going to be placed in observation to rule out any arrhythmias. If clinically stable will plan for discharge tomorrow. # Atrial fibrillation-on atenolol, Eliquis # Hypertension-on lisinopril, atenolol # Gout-on allopurinol All meds held tonight. Cardiac diet CODE STATUS full code DVT prophylaxis not needed GI prophylaxis not needed Disposition Home - Quality Measures Quality Measures none Advance care planning discussed with:: patient Documented by User: Nba Wright DO 05/02/25 12:38 History of Present Illness History of Present Illness History of present illness: History of Presenting Illness: 79y/o F with PMH of A.fib, HTN, hypercholesterolemia, choliathiasis, presents to the hospital due to an episode of syncope. Patient noted that he was waiting for her friend at [facility], felt sudden lightheadedness, and fell to the ground. The next thing she remembers was two guards at the [facility] assisting her to sit on chair. Patient didn't have chest pain, palpitations, aura, or headache. When she woke up, she didn't have any symptoms other than a small tender swelling on her left parietal occipital scalp area which she hit to the ground when she fell. This was the first time she is experiencing this. She does not remember if bystanders told her whether she was actively tremoring when she fell to the ground. Currently Denies chest pain, palpation, SOB, abdominal pain, N/V, fevers or chills. The patient will be admitted for observation and monitoring of symptoms following a syncopal episode with a subsequent fall. Given her advanced age, inpatient monitoring is warranted for further evaluation and to mitigate potential complications. ED course: In ED, Vitals were: BP 125/78, TN:61, RR:18, Temp:98.8, O2 sat 96% RA. Blood tests and urine test: CBC unremarkable, PT/PTT within normal limits cervical spine CT report is: No acute cervical fracture Head CT report is: Negative for acute hemorrhage No medication was given in the ED. Medical history: As stated above Surgical history: Cholecystectomy, C section, Partial hysterectomy, cataract surgery on both eyes. Allergies: Iron causing itching, Krill oil causing rash Medications: Pending official med rec Family history: Diabetes Social history: Denies smoking cigarettes, drinking alcohol or using other illicit drugs ROS: All 12 systems assessed and the patient denies unless otherwise stated in HPI Review of Systems Review of Systems Narrative Review of Systems: All 12 systems assessed and the patient denies unless otherwise stated in HPI Meds Home Medications and Allergies Home Medications ?Medication ?Instructions ?Recorded ?Confirmed ?Type allopurinol 100 mg tablet 1 tab PO QDAY 04/25/22 05/01/25 History atenolol 25 mg tablet 1 tab PO QDAY 04/25/22 05/01/25 History Held on 05/02/25. Instructions: Resume on 05/09/25. Allergies Allergy/AdvReac Type Severity Reaction Status Date / Time iron Allergy Severe Itching Verified 05/01/25 14:56 krill oil Allergy Rash Verified 05/01/25 14:56 Exam Narrative Exam General: No acute distress, well nourished, AAO x3 Eye: PERRL, EOMI, normal conjunctiva, no scleral icterus HENT: Normocephalic, atraumatic, hearing intact to conversation at normal volume, moist oral mucosa Neck: Supple, non-tender, no JVD, no lymphadenopathy Lungs: Non-labored respirations, symmetric chest rise, Clear to auscultate bilaterally, No wheezing, rhonchi, crackles Heart: Peripheral pulses intact bilaterally, Regular Rate and Rhythm, No pitting edema of bilateral LEs. Abdomen: Soft, non-tender, non-distended, no palpable masses Musculoskeletal: Normal range of motion and strength, No cyanosis or edema, No visible joint swelling Skin: Skin is warm, dry, no rashes or lesions. Psychiatric: Cooperative, appropriate mood and affect, Awake and alert, not agitated Neuro: Cranial nerves II-XII grossly intact. Sensations intact to light touch. Results: Labs 05/02/25 05:09 05/02/25 05:09 Assessment & Plan Assessment and plan (1) Syncope: Status: Acute (2) Scalp contusion: Status: Acute Additional Assessment & Plan Additional Plan: 79y/o F with PMH of A.fib, HTN, hypercholesterolemia, choliathiasis, presents to the hospital due to an episode of syncope. The patient will be admitted for observation and monitoring of symptoms following a syncopal episode with a subsequent fall. #Syncope - Patient stated that she felt lightheadedness and fell to the ground unconscious for short period. - Cervical Spine CT (05/01/2025): No acute cervical fracture, There are tiny osteolytic areas throughout all the vertebral bodies as above, this may represent severe osteopenia - Head CT (05/01/2025): Negative for acute hemorrhage, mass effect or midline shift - Possible differentials: Cardiac syncope, given this patient's A.fib history VS ?Vasovagal syncope, given this patient's bradycardia and history of low bloodpressure, this is a potential diagnosis Plan: - Continue to monitor - Acetaminophen 650mg PO qrh4 prn #Hx of Afib -Continue home meds #Hx of HTN -Current BP: 125/78 Plan: -Continue home meds Disposition: Admitted for observation of syncope and ground level fall. Diet: Cardiac diet GI prophylaxis: Maalox DVT prophylaxis: SCD Code: Full Assessment and plan discussed with my attending physician Dr. Ashwin Wright (PGY-1)- Internal medicine resident Quality Measures Quality Measures Advance care planning discussed with:: patient
[2025-05-01 20:30] VITALS: BP 136/82; PULSE 60; RESP 19; TEMP 37.1; O2SAT 98
--- NOTE | 2025-05-01 20:34 | PC.NURSE ---
attempted to call report-nurse occupied will call me back
--- NOTE | 2025-05-01 22:00 | EKG_ITS ---
[facility] Test Date: 2025-05-01 Pat Name: POLY CORONADO Department: Room: - Gender: Female Licensing Manager: OMAR : 1945 Requested By: Lashawn Christopher Order Number: [id number] Reading MD: Lashawn Christopher Measurements Intervals [place] Rate: 59 P: GA: QRS: -4 QRSD: 83 T: 0 QT: 333 QTc: 331 Interpretive Statements SUPRAVENTRICULAR BRADYCARDIA NONSPECIFIC T-WAVE ABNORMALITY ABNORMAL RHYTHM ECG Compared to ECG 05/01/2025 15:04:26 T-wave abnormality now present Sinus rhythm no longer present /store/S0/[id number].pdf
[2025-05-02] VITALS: BP 125/81; PULSE 50; PULSE 53; RESP 20; TEMP 36.1; O2SAT 97
[2025-05-02 04:00] VITALS: BP 144/78; PULSE 61; PULSE 62; RESP 12; TEMP 36.4; O2SAT 97
[2025-05-02] MEDS: ACETAMINOPHEN 325 MG TABLET 650 MG PO (05:28)
[2025-05-02 06:15] LABS: Basophils # (Auto) 0.1 Thou/mm3 (0.0-0.2); Basophils % (Auto) 2 % (0-2.5); Eosinophils # (Auto) 0.2 Thou/mm3 (0.0-0.5); Eosinophils % (Auto) 3 % (0-10); Hematocrit 39.6 % (36.0-46.0); Hemoglobin 12.7 g/dL (12.0-16.0); Immature Granulocytes Auto 0.01 Thou/mm3 (0.00-0.00); Lymphocytes # (Auto) 1.3 Thou/mm3 (1.0-4.8); Lymphocytes % (Auto) 26 % (10-50); Mean Corpuscular HGB Conc 32.1 g/dl (31.0-37.0); Mean Corpuscular Hemoglobin 32.1 pg (25.0-35.0); Mean Corpuscular Volume 100 fL (80-100); Monocytes # (Auto) 0.5 Thou/mm3 (0.0-0.8); Monocytes % (Auto) 10 % (0-12); Neutrophils # (Auto) 2.9 Thou/mm3 (1.8-7.7); Neutrophils % (Auto) 58 % (37-80); Nucleated Red Blood Cell # 0.00 Thou/mm3 (0.00-0.00); Nucleated Red Blood Cell % 0 /100 WBC (0); Platelet Count 204 Thou/mm3 (140-440); RDW Standard Deviation 45.8 fL (36.4-46.3); Red Blood Count 3.96 Miln/mm3 (4.00-5.20); White Blood Count 5.0 Thou/mm3 (3.6-11.0)
[2025-05-02 06:52] LABS: Alanine Aminotransferase < 7 U/L (10-49); Albumin, Serum 3.7 gm/dL (3.4-4.8); Albumin/Globulin Ratio 1.4 (1.2-2.2); Alkaline Phosphatase 58 U/L (46-116); Anion Gap 10 (7-16); Aspartate Amino Transferase 17 U/L (0-34); BUN/Creatinine Ratio 7 Ratio (12-20); Bilirubin,Total 0.9 mg/dL (0.3-1.2); Blood Urea Nitrogen 6 mg/dL (9-23); Calcium 9.8 mg/dL (8.3-10.6); Calcium (Corrected) 10.0 mg/dL (8.5-10.1); Carbon Dioxide 26.6 mMol/L (20.0-31.0); Chloride 105 mMol/L (98-107); Creatinine (Component) 0.9 mg/dL (0.6-1.3); Estimated Creatinine Clearance 42.3 mL/min (>60); Globulin 2.6 gm/dL (2.3-3.5); Glucose 89 mg/dL (74-106); Osmolality,Calculated 279 (275-295); Potassium 3.6 mMol/L (3.4-5.1); Sodium 142 mMol/L (136-145); Total Protein 6.3 gm/dL (5.7-8.2); eGFR > 60 See Note
[2025-05-02 07:39] VITALS: BP 126/73; PULSE 64; RESP 16; TEMP 36.7; O2SAT 96
[2025-05-02 08:00] VITALS: PULSE 58
[2025-05-02 10:04] VITALS: PULSE 53
--- NOTE | 2025-05-02 11:31 | PD.RESDS ---
Planned Discharge Date 05/02/25 DS: Providers Provider Date of admission: 05/01/25 19:45 Primary care physician: Lashawn Helton MD Admitting Provider: Lashawn Helton MD Attending Provider on Admission: Lashawn Helton MD Attending Provider on DC: RESIDENT Davey Discharging Provider: RESIDENT Davey DS: Diagnosis Problem List Completed Was Problem List Reviewed/Reconciled?: Yes Hospital Course Hospital Course Hospital course: Summary: 79y/o F with PMH of A.fib, HTN, hypercholesterolemia, choliathiasis, presents to the hospital 05/01/2025 due to an episode of syncope and ground level fall. No acute changes in imaging studies. Patient was admitted to [facility] potential complications from the fall. ED course: In ED, Vitals were: BP 125/78, IL:61, RR:18, Temp:98.8, O2 sat 96% RA. Blood tests and urine test: CBC unremarkable, PT/PTT within normal limits cervical spine CT report is: No acute cervical fracture Head CT report is: Negative for acute hemorrhage No medication was given in the ED. Hospital Course: Patient was admitted to the hospital for potential complications from the fall, syncope, or possible arrhythmias. Patient's orthostatic vitals were negative. Patient's blood pressure medication, atenlol and hydralazine prn was on hold due to her blood pressure decreasing. Patient was discharged with instructions to hold atenlol for 1 week and discontinue hydralazine prn. Eliquis lowered to 2.5mg PO bid. Instructions: -f/u with dr. helton in 1-2 weeks Stable to return home. #Syncope--probably related to low blood pressure #Hx of Atrial fibrillation #Hx of Hypertension #Hx of Gout Status at Discharge Cognitive/behavioral status at discharge: Stable Functional status at discharge: independent ambulation Overall status at discharge: patient is back to baseline Time Spent with Patient Time attestation: Total time spent providing and/or coordinating discharge services: 30min Time spent: Greater than 30 minutes Exam Vital Signs Temp Pulse Resp BP Pulse Ox O2 Del Method 98.0 F 53 L 16 126/73 96 Room Air 05/02/25 07:39 05/02/25 10:04 05/02/25 07:39 05/02/25 07:39 05/02/25 07:39 05/02/25 07:39 Narrative Exam General: No acute distress, well nourished, AAO x3 Eye: PERRL, EOMI, normal conjunctiva, no scleral icterus HENT: Normocephalic, atraumatic, hearing intact to conversation at normal volume, moist oral mucosa Neck: Supple, non-tender, no JVD, no lymphadenopathy Lungs: Non-labored respirations, symmetric chest rise, Clear to auscultate bilaterally, No wheezing, rhonchi, crackles Heart: Peripheral pulses intact bilaterally, Regular Rate and Rhythm, No pitting edema of bilateral LEs. Abdomen: Soft, non-tender, non-distended, no palpable masses Musculoskeletal: Normal range of motion and strength, No cyanosis or edema, No visible joint swelling Skin: Skin is warm, dry, no rashes or lesions. Psychiatric: Cooperative, appropriate mood and affect, Awake and alert, not agitated Neuro: Cranial nerves II-XII grossly intact. Sensations intact to light touch. Discharge Plan Plan Patient Disposition: HOME (Self Care) Prescriptions/Referrals Prescriptions/Med Rec: Continued allopurinol 100 mg tablet 1 tab PO QDAY Changed Eliquis 5 mg tablet 2.5 mg PO BID Qty: 1 0RF Held atenolol 25 mg tablet 1 tab PO QDAY Hold Instructions: Resume on 05/09/25. Discontinued hydralazine 25 mg tablet 1 tab PO QDAY Referrals: Lashawn Helton MD [Primary Care Provider, Nephrology] Patient/Caregiver Discharge Instructions Discharge Activity: activity as tolerated Education Materials: What Is Syncope?, Treating Syncope: Prevention Print Language: Hungarian Activity Restrictions/Additional Instructions: f/u with dr. helton in 1-2 weeks Stand Alone Forms: YAZUO Award Info., Patient Portal Info Letter, Work/Release Restrictions Discharge Order Discharge Orders: Discharge (Routine); Ordered 05/02/25 Ordered By: Lashawn Helton Quality Discharge Quality Measures VTE prophylaxis MD Attestestation MD Attestation Patient seen and examined with resident physician Dr. Wright. Note reviewed, agree with findings and recommendations. Patient admitted with syncope-most likely related to low blood pressure and decreased p.o. intake. Held blood pressure medications, decreased Eliquis to 2.5 mg p.o. twice daily (due to fall risk) Suggested to follow-up with cardiology Follow-up with Dr. Helton in 1 to 2 weeks
--- NOTE | 2025-05-02 12:53 | PC.SS ---
SS met with patient regarding her d/c plan. Pt is alert/oriented. Pt was admitted for Syncope. Pt confirmed her demographic and contact information is correct on facesheet. Pt resides with . Pt ambulates independently without assistance or DME. Pt is ok with all ADLs. Patient?s pharmacy of choice is [facility]. Pt named her , Mallory Zavaleta medical decision maker if he is unable. SS provided verbal d/c options to home or SNF. Patient?s choice is to return home upon d/c. Pt does not have an advance directive, SS offered, and pt declined. Pt states not diabetic and is not on dialysis. Pt followed up with PCP yesterday. D/C plan: Return home Next of Kin: Migueljean-claude Holbrook Waqar, , phone# [phone] or [phone] PCP: Dr. Christopher Address: Correct on facesheet
--- NOTE | 2025-05-02 14:00 | EKG_ITS ---
[facility] Test Date: 2025-05-02 Pat Name: POLY CORONADO Department: Room: - Gender: Female Show Card Letterer: STEVE : 1945 Requested By: Lashawn Christopher Order Number: [id number] Reading MD: Lashawn Christopher Measurements Intervals [place] Rate: 58 P: 74 PA: 179 QRS: 40 QRSD: 82 T: 14 QT: 351 QTc: 345 Interpretive Statements SINUS BRADYCARDIA WITH OCCASIONAL SUPRAVENTRICULAR PREMATURE COMPLEXES NONSPECIFIC T-WAVE ABNORMALITY Compared to ECG 05/01/2025 22:15:52 No significant changes /store/S0/[id number]
== END 2025-05-02 10:55 | disposition home or self-care (01) ==
LOC: SERX 16:41 → SERHOLD 19:55 → S3SX 21:07
PROVIDERS: Nurse Practitioner Family; Admitting Provider Internal Medicine; Emergency Provider Emergency Medicine; PCP Internal Medicine; Visit Provider Internal Medicine
DX: R55 Syncope and collapse (principal); I48.91 Unspecified atrial fibrillation; I10 Essential (primary) hypertension; M10.9 Gout, unspecified; S00.03XA Contusion of scalp, initial encounter; W19.XXXA Unspecified fall, initial encounter; E78.00 Pure hypercholesterolemia, unspecified; M89.58 Osteolysis, other site
CPT/HCPCS: 36415; 70450; 72125; 80053; 81001; 83735; 83880; 84439; 84443; 84484; 85025; 85610; 85730; 87077; 87086; 87186; 93005; G0378; A9270

== ENCOUNTER → 2025-08-08 | Outpatient (CLI) | payer OTHER, SELFPAY ==
[2025-08-08 08:50] LABS: Glucose Estimated Average 114 mg/dL (80-131); Hemoglobin A1C 5.6 % Hgb (4.8-6.0)
[2025-08-08 09:24] LABS: Collection Type, Urine Clean Catch
[2025-08-08 09:24] LABS: Alanine Aminotransferase 8 U/L (10-49); Albumin, Serum 4.2 gm/dL (3.4-4.8); Albumin/Globulin Ratio 1.5 (1.2-2.2); Alkaline Phosphatase 50 U/L (46-116); Anion Gap 5 (7-16); Aspartate Amino Transferase 17 U/L (0-34); BUN/Creatinine Ratio 16 Ratio (12-20); Bilirubin,Total 0.5 mg/dL (0.3-1.2); Blood Urea Nitrogen 14 mg/dL (9-23); Calcium 9.9 mg/dL (8.3-10.6); Calcium (Corrected) 9.9 mg/dL (8.5-10.1); Carbon Dioxide 29.1 mMol/L (20.0-31.0); Cardiac Risk Estimate 2.7 RATIO (3.7-5.6); Chloride 109 mMol/L (98-107); Cholesterol 208 mg/dL (132-200); Creatinine (Component) 0.9 mg/dL (0.6-1.3); Globulin 2.8 gm/dL (2.3-3.5); Glucose 96 mg/dL (74-106); HDL Cholesterol 77 mg/dL (40-60); LDL Cholesterol,Calculated 111 mg/dL (0-130); Osmolality,Calculated 285 (275-295); Potassium 4.2 mMol/L (3.4-5.1); Sodium 143 mMol/L (136-145); Total Protein 7.0 gm/dL (5.7-8.2); Triglycerides 102 mg/dL (30-150); eGFR > 60 See Note
[2025-08-08 09:52] LABS: Bacteria,Urine Rare; Bilirubin,Urine Negative (Negative); Blood,Urine 1+ (Negative); Clarity,Urine Clear (Clear/Hazy); Color,Urine Lt-Yellow (Lt Yel-Yel); Glucose, Urine Negative (Negative); Ketones,Urine Negative (Negative); Leukocyte Esterase,Urine Positive (Negative); Nitrite,Urine Negative (Negative); PH,Urine 5.5 (5.0-7.0); Protein,Urine Trace (Neg - Trace); RBC,Urine 6 /hpf (0-3); Specific Gravity,Urine 1.021 (1.001-1.035); Squamous Epithelial Cell,Urine 8 /hpf (0-5); Urobilinogen,Urine Negative mg/dL (0.0-1.0); WBC,Urine 14 /hpf (0-5)
[2025-08-08 10:07] LABS: Creatinine MALB Rnd Ur 147 mg/dL (30-125); Microalbumin Creat Ratio 13 mg/gCrea (<30); Microalbumin, Random Urine 19 mg/L (0-300)
[2025-08-08 10:30] LABS: Parathyroid Hormone Intact 120.8 pg/ml (18.5-88.0)
== END | disposition home or self-care (01) ==
LOC: COPL 08:01
PROVIDERS: PCP Internal Medicine; Referring Provider Internal Medicine; Visit Provider Internal Medicine
DX: E11.22 Type 2 diabetes mellitus with diabetic chronic kidney disease (principal); I12.9 Hypertensive chronic kidney disease with stage 1 through stage 4 chronic kidney disease, or unspecified chronic kidney disease; N18.31 Chronic kidney disease, stage 3a; E78.5 Hyperlipidemia, unspecified
CPT/HCPCS: 36415; 80053; 80061; 81001; 82043; 82570; 83036; 83970